=== PATIENT | male | born 1955 | race Hispanic/Latino ===

== ENCOUNTER 2019-09-10 18:05 | Inpatient (IN) | payer SELFPAY ==
[2019-09-10] MEDS ORDERED: Morphine 4 MG/ML VIAL ONE (18:35)
[2019-09-10] MEDS ORDERED: Dextrose 50% Abboject 50 ML SYRINGE SLOW IVP PRN (21:59)
[2019-09-10] MEDS ORDERED: HumaLOG 300 UNITS/3 ML VIAL SC PRN (21:59)
[2019-09-10] MEDS ORDERED: Dextrose 5% in Water 1,000 ML IV PRN (21:59)
[2019-09-10] MEDS ORDERED: Atorvastatin Calcium 40 MG TAB PO SCH (22:00)
[2019-09-10] MEDS ORDERED: Pantoprazole 40 MG VIAL IVP SCH (22:00)
[2019-09-10] MEDS ORDERED: Sodium Chloride 0.9% (PF) 10 ML VIAL FS PRN (22:03)
[2019-09-10] MEDS ORDERED: Metoprolol Tartrate 50 MG TAB PO SCH (22:15)
[2019-09-10 22:29] LABS: Troponin I 0.863 ng/mL (< 0.028)
[2019-09-10] MEDS: Morphine 2 MG/ML SYRINGE SLOW IVP PRN (22:51)
[2019-09-10 23:10] VITALS: BMI 33.5
[2019-09-10] MEDS ORDERED: Nitroglycerin 2% Ointment 1 INCH/1 GM Packet TOP SCH (23:59)
--- NOTE | 2019-09-11 00:41 | HP ---
CHIEF COMPLAINT: Chest pain. HISTORY OF PRESENT ILLNESS: The patient is a 63-year-old male with a history of coronary artery disease, who had three vessel bypass in 2004. The patient reports he follows with Dr. Knapp and gets sublingual nitroglycerin from him, but has not seen a it quality assurance analyst in 15 years. He also has hypertension, hyperlipidemia, and diabetes. The patient reports that for about the past 6 to 8 weeks, he has been having exertional chest pain. He used the sublingual nitroglycerin and it seemed to help him some initially. Therefore, he knew it was likely problematic. He was hopeful that it was more reflux related and he tried some sodium bicarb and sxee-[id number] medicines, but those did not seem to help him. He did not want to worry his family, so he did not say anything, but about 2-3 days ago, he started experiencing pain that was incessant, present /. He reported that it got to 8.5/10 today. It was central in his chest. He had no shortness of breath, nausea, vomiting or lightheadedness, but he did have pain today for the first time in both upper arms. He initially presented to the emergency department in [place], where he had nitroglycerin given x2 along with Lovenox and a GI cocktail. He apparently had some ST depression in V1, V4 and V5, although it does not appear to be significant by my evaluation of those. His troponin was 0.25. He was subsequently transferred to this facility. Currently, he reports 6/10 chest pain. He got some relief with the nitroglycerin, but it did not make it go away and the morphine has not helped him significantly either. REVIEW OF SYSTEMS: The patient reports that he has had muscle cramps about a week ago, thought he worked too hard and did not stay hydrated. He also has some musculoskeletal issues and reports he takes naproxen on a daily basis. PAST MEDICAL HISTORY: Hypertension, hyperlipidemia, prior [place] with coronary artery disease, diabetes mellitus, and diabetic neuropathy. PAST SURGICAL HISTORY: 1. CABG x3 vessels in 2004. 2. Bilateral carpal tunnel release. 3. Right shoulder surgery. FAMILY HISTORY: Father had heart disease. Mother had diabetes. SOCIAL HISTORY: The patient smokes a pack a day. He denies alcohol, tobacco, or drugs. He is . He is full code and his would be his surrogate decision maker should that become necessary. ALLERGIES: NONE. CURRENT MEDICATIONS: 1. Atorvastatin 20 mg at bedtime. 2. Fenofibrate 145 mg daily. 3. Gabapentin 300 mg b.i.d. 4. Lisinopril/hydrochlorothiazide 06/18.5 one p.o. daily. 5. Metformin 500 mg b.i.d. 6. Metoprolol 50 mg daily. 7. Nitroglycerin sublingual 0.4 mg p.r.n. PHYSICAL EXAMINATION: VITAL SIGNS: Most recent recorded vitals, BP 147/92, pulse 74, respirations 16, temperature 97.7, O2 saturations 99% on room air. GENERAL APPEARANCE: Age-appropriate male, who appears comfortable. He is awake and alert, pleasant, cooperative. HEENT: [place]. No OP lesions. NECK: Supple and symmetric. No lymphadenopathy, JVD, or bruits. HEART: Regular rate and rhythm without murmurs, gallops, or rubs. LUNGS: Clear to auscultation bilaterally with good chest wall expansion and air exchange. ABDOMEN: Soft, nontender, and nondistended. Positive bowel sounds. No masses and no organomegaly. EXTREMITIES: No cyanosis, clubbing, or edema. There is no musculoskeletal tenderness to palpation over the anterior chest. PSYCHIATRIC: Normal affect and behavior. NEUROLOGIC: Appears to move all extremities spontaneously. Has normal cognition and normal cranial nerve function. LABORATORY DATA: White count 14.4, hemoglobin 15.5, platelets 251. Chemistries are normal with the exception of the troponins as stated above. Chest x-ray is clear. EKG shows only some minimal nonspecific ST and T-wave changes, but certainly nothing diagnostic. It is otherwise normal sinus rhythm. IMPRESSION AND PLAN: 1. Chest pain with elevation in troponin consistent with a non-STEMI type 1 given his history. He has received nitroglycerin and Lovenox. We will put nitroglycerin paste and p.r.n. nitrates. Continue with his beta blockers. Consult Cardiology and keep him n.p.o. after midnight. Continue morphine for pain as needed. We will bump up his statin and check a lipid panel in the morning. 2. Diabetes mellitus. Holding his metformin in light of the potential for catheterization. We will continue Accu-Cheks sliding scale, diabetic diet and close monitoring. 3. Hypertension. Continue with his usual beta-michelle and PJ inhibitor. 4. Daily NSAID use with naproxen. Certainly with this bump in the troponins, this is most likely cardiac in nature. However, mitigating against that is the fact that the pain has been constant for several days, which is not typical of an anginal type pain and I am concerned that he certainly may have some component of GI related symptoms as well. Therefore, we will keep him on Protonix IV. Job ID: [id number]
[2019-09-11] MEDS: Nitroglycerin 0.4 MG TAB (25 Tab Bottle) SL PRN ×3 (00:42→22:37)
[2019-09-11 01:49] LABS: Troponin I 2.358 ng/mL (< 0.028)
[2019-09-11] MEDS: Morphine 2 MG/ML SYRINGE SLOW IVP PRN (03:13)
--- NOTE | 2019-09-11 03:44 | PDOC.EVN ---
Event Note - Event Note Event Note: Notified Mr. James had CP again. Talking with the patient, he had improvement of the pain around midnight and was able to sleep a few hours, but awoke with pain again. Has received meds again now and it is easing a bit, but not going away. Trops are positive now and upward trending. EKG is unchanged. Will transfer to the ICU for nitro gtt.
[2019-09-11] MEDS ORDERED: Nitroglycerin 50 MG/250 ML BOT 250 ML IVPB SCH (03:45)
[2019-09-11] MEDS ORDERED: Morphine 4 MG/ML VIAL SLOW IVP PRN (05:47)
[2019-09-11 06:05] LABS: Troponin I 5.378 ng/mL (< 0.028)
--- NOTE | 2019-09-11 06:10 | PDOC.EVN ---
Event Note - Event Note Event Note: Pain not relieved with nitro gtt at 30. Morphine 4 mg IV given. Discussed with Dr. Cummings. He will come see the patient. Recommended continued titration of the nitro. Last SBP down from 140's to 115. Will titrate slowly. Just notified that the latest troponin was up to 5.
--- NOTE | 2019-09-11 07:10 | CON ---
DATE OF CONSULTATION: HISTORY OF PRESENT ILLNESS: The patient is a 63-year-old gentleman, who presents with chest discomfort. The patient has a previous history of coronary artery disease. He underwent coronary artery bypass graft x3 in 2004. He had been doing well until a few months ago when he developed midsternal chest discomfort. He states this occurred with exertion and was relieved by rest. The patient presented to the emergency room yesterday when he developed recurrent chest discomfort that was not relieved by nitroglycerin. The patient was admitted to the hospital and has continued to report substernal chest discomfort. PAST MEDICAL HISTORY: 1. Hypertension. 2. Diabetes mellitus. 3. Dyslipidemia. PAST SURGICAL HISTORY: Coronary artery bypass graft surgery, shoulder surgery. SOCIAL HISTORY: Long history of continued tobacco abuse. MEDICATIONS: See nursing list. ALLERGIES: NONE. PHYSICAL EXAMINATION: GENERAL: Ill-appearing gentleman, in mild distress. VITAL SIGNS: Blood pressure 130/70. NECK: No jugular venous distention. LUNGS: Clear to auscultation. HEART: Regular rate and rhythm. Normal S1 and S2. ABDOMEN: Distended. EXTREMITIES: Showed no edema. LABORATORY DATA: His white blood cell count was 14.4, hemoglobin 15.3, hematocrit 46.9, and platelets are 251. His sodium is 142, potassium 3.7, chloride 104, bicarbonate 25, BUN 18, and creatinine 1.2. Troponin is 5. BNP 32. IMAGING DATA: EKG revealed normal sinus rhythm, nonspecific T-wave abnormality. IMPRESSION: 1. Non-Q-wave myocardial infarction. 2. History of coronary artery bypass surgery. 3. Hypertension. 4. Diabetes mellitus. 5. Dyslipidemia. 6. Tobacco abuse. PLAN: This gentleman presents with recurrent chest discomfort. His EKG is unremarkable. Cardiac enzymes reveal evidence of a non-Q-wave myocardial infarction. The patient's chest pain has been resistant to medical therapy. We will proceed with emergent cardiac catheterization. The risks of the procedure have been explained to the patient including [place], bleeding, stroke, cardiac arrhythmias, and cardiac . The patient understands these risks and wished to proceed. Critical care note time is 1 hour. Job ID: [id number] MTDD
[2019-09-11] MEDS ORDERED: Heparin (Artline) 1,000 ML ONE (07:35)
[2019-09-11] MEDS ORDERED: Midazolam HCl 2 mg/2 ml Vial ONE (08:12)
[2019-09-11] MEDS ORDERED: Pantoprazole 40 MG VIAL IVP SCH (09:00)
[2019-09-11] MEDS ORDERED: FLU VACC QS2019-20(6MOS UP)/PF 60 MCG/0.5 ML SYRINGE IM ONE (09:00)
[2019-09-11] MEDS ORDERED: Aspirin 81 mg Enteric Coated Tablet PO SCH (09:45)
[2019-09-11] MEDS ORDERED: Clopidogrel Bisulfate 300 MG TAB PO SCH (09:45)
[2019-09-11] MEDS ORDERED: Iopamidol 370 76% 100 ML VIAL ONE (09:51)
[2019-09-11] MEDS: Fenofibrate Nanocrystallized 145 MG TAB PO SCH (09:53)
[2019-09-11] MEDS: Gabapentin 300 MG CAP PO SCH ×2 (09:54→20:48)
[2019-09-11] MEDS: Metoprolol Tartrate 50 MG TAB PO SCH ×2 (09:54→20:48)
[2019-09-11] MEDS: Lisinopril/Hydrochlorothiazide 10 mg/12.5 mg Tablet PO SCH (10:00)
[2019-09-11 10:14] LABS: Troponin I 10.009 ng/mL (< 0.028)
[2019-09-11] MEDS ORDERED: HumaLOG 300 UNITS/3 ML VIAL SC PRN (13:40)
--- NOTE | 2019-09-11 13:43 | PDOC.HOSPP ---
- Subjective Encounter Date: 09/11/19 Encounter Time: 10:15 Subjective: Patient seen and examined for NSTEMI. CP improving. No new complaints. No overnight events - Objective Vital Signs & Weight: Vital Signs (12 hours) Temp Pulse Resp BP Pulse Ox 09/11/19 12:00 98.3 F 97 09/11/19 09:30 97 09/11/19 05:04 98 09/11/19 05:00 97.8 F 09/11/19 04:00 70 20 133/80 09/11/19 03:57 97.8 F 70 16 141/71 H 98 09/11/19 03:10 70 129/78 Weight Weight 195 lb 3.382 oz Most Recent Monitor Data Heart Rate from ECG 65 NIBP 83/60 NIBP BP-Mean 67 Respiration from ECG 24 SpO2 98 I&O: 09/10/19 09/11/19 09/12/19 06:59 06:59 06:59 Intake Total 340 Output Total 250 300 Balance -250 40 Additional Labs: Accuchecks 09/11/19 09/11/19 11:54 05:37 POC Glucose 111 H 134 H Laboratory Tests 09/11/19 09/11/19 05:16 09:39 Troponin I 10.009 H* Triglycerides 254 H Cholesterol 154 LDL Cholesterol, Calc 81 Radiology Reviewed by me: Yes (CXR - No infiltrate) EKG Reviewed by me: Yes (Tele SR) Hospitalist ROS - Review of Systems Respiratory: denies: cough, dry, shortness of breath, hemoptysis, SOB with excertion, pleuritic pain, sputum, wheezing, other Cardiovascular: denies: chest pain, palpitations, orthopnea, paroxysmal noc. dyspnea, edema, light headedness, other Gastrointestinal: denies: nausea, vomiting, abdominal pain, diarrhea, constipation, melena, hematochezia, other - Medication Medications: Active Medications Generic Name Dose Route Start Last Admin Trade Name Freq PRN Reason Stop Dose Admin Fenofibrate 145 mg 09/11/19 09:00 09/11/19 09:53 Tricor PO 145 mg DAILY CORTNEY Administration Gabapentin 300 mg 09/11/19 09:00 09/11/19 09:54 Neurontin PO 300 mg BID CORTNEY Administration Nitroglycerin/Dextrose 250 mls @ 0 mls/hr 09/11/19 03:45 09/11/19 04:42 Nitroglycerin 50 Mg/250 Ml Bot IVPB 250 mls INF CORTNEY Administration Protocol Titrate Metoprolol Tartrate 50 mg 09/11/19 09:00 09/11/19 09:54 Lopressor PO 50 mg BID CORTNEY Administration Morphine Sulfate 2 mg 09/10/19 21:59 09/11/19 03:13 Morphine SLOW IVP 2 mg Q4H PRN Administration Moderate to Severe Pain (6-10) Morphine Sulfate 4 mg 09/11/19 05:47 09/11/19 05:52 Morphine SLOW IVP 4 mg Q4H PRN Administration Severe Pain (7-10) Nitroglycerin 0.4 mg 09/10/19 21:49 09/11/19 02:54 Nitrostat SL 1 tab Q5M PRN Administration Chest Pain - Exam General Appearance: NAD Neck: no JVD Heart: RRR, no gallops, no rubs, normal peripheral pulses Respiratory: no wheezes, no rales, no ronchi Gastrointestinal: soft, non-tender, non-distended, normal bowel sounds Extremities: no cyanosis, no edema Neurological: no new deficit Psychiatric: normal affect, A&O x 3 Hosp A/P - Plan DVT proph w/SCDs NSTEMI DM2 HTN HLD CAD Tobacco dep Obesity 33.5 PLAN: Cont ASA/Metoprolol/Ranexa Plavix added Cont sliding scale Metformin on hold Cont NTG drip Cont Lisinopril/HCTZ AM labs
--- NOTE | 2019-09-11 16:54 | CON ---
DATE OF CONSULTATION: 09/11/2019 SERVICE: Pulmonary Medicine. REASON FOR CONSULTATION: ICU patient. HISTORY OF PRESENT ILLNESS: The patient is a 63-year-old male with past medical history significant for coronary artery disease. Typically, he will get some angina from time to time and takes some medication for it. For the past two weeks, almost any time he exerted himself, he gets chest discomfort, for which he take nitroglycerin and it go away. Ultimately, two days ago, he got to the point, where he had almost continuous chest discomfort and it is essentially was refractory to the nitroglycerin. As such, he presented to the Emergency Department. He was taken for cardiac catheterization. Medical optimization has been recommended. He denies any current fevers, chills, nausea, or vomiting. He has been coughing a little bit, but not bringing up any phlegm. He does not have any known COPD or asthma. He does have sleep apnea, for which he has a CPAP. It is quite old. He was formally diagnosed, but this was because his friend was a office technology instructor in some sort, and was able to get him a CPAP machine through back channels. PAST MEDICAL HISTORY: 1. Coronary artery disease. 2. Hypertension. 3. Dyslipidemia. 4. Type 2 diabetes mellitus. 5. Diabetic neuropathy. 6. Obstructive sleep apnea. 7. Morbid obesity. PAST SURGICAL HISTORY: 1. Coronary artery bypass graft x3 vessels in 2004. 2. Carpal tunnel surgery, bilateral. 3. Right shoulder surgery. FAMILY HISTORY: Noncontributory. SOCIAL HISTORY: Negative for alcohol or illicit drug use. He smokes a pack on a daily basis. He has a greater than 40 pack-year history of smoking. He has no exposure to chemicals, dust, asbestos, or tuberculosis. ALLERGIES: NO KNOWN DRUG ALLERGIES. MEDICATIONS: List of his inpatient medications was reviewed. No specific updates were made at this time. REVIEW OF SYSTEMS: General, head, ears, eyes, nose, throat, cardiovascular, respiratory, GI, , musculoskeletal, neurologic, and skin are negative except as mentioned is the HPI. PHYSICAL EXAMINATION: VITAL SIGNS: Afebrile, pulse 65, blood pressure 83/60, respirations 24, and saturation 98%, currently on 2 L nasal cannula. GENERAL: The patient is awake and alert, in no apparent distress. LUNGS: Decent air entry. Rhonchi are present, but clear with cough. Dependent crackles are minimal. HEART: Normal rate. Regular. ABDOMEN: Soft, nontender, and nondistended. Bowel sounds are positive. MUSCULOSKELETAL: No cyanosis or clubbing. There is trace pitting in bilateral lower extremities. : No [place]. LABORATORY DATA: Troponin has increased to 10.0. WBC 14.4, hemoglobin 15.3, and platelets 251,000. Basic metabolic profile and liver function studies are otherwise unremarkable. IMAGING: Chest x-ray demonstrates no acute cardiopulmonary abnormality. ASSESSMENT: 1. Non-ST elevation myocardial infarction. 2. Acute hypoxic respiratory failure. 3. Obstructive sleep apnea. DISCUSSION AND PLAN: The patient is stable for transition out of the ICU to the telemetry unit. Pulmonary will continue to follow, whenever if he remains in this location. I will check a CPAP out tomorrow and determine whether or not he is on appropriate settings. If not, we will get him to visit with me in the outpatient setting. 70 minutes have been devoted to this patient in various activities. I personally reviewed all imaging studies and laboratory data noted within this document. For fifty percent of this time, I was interacting with the patient at the bedside or coordinating care with the care team. For the remainder of the time I was immediately available to the patient in the hospital unit. Job ID: [id number] MTDD
[2019-09-11] MEDS: Atorvastatin Calcium 40 MG TAB PO SCH (20:48)
[2019-09-12 04:05] LABS: #Eosinphils 0.3 thou/uL (0.0-0.7); #Lymphocytes 1.4 thou/uL (1.20-3.40); #Monocytes 1.1 thou/uL (0.11-0.59); #Neutrophils 8.3 thou/uL (1.40-6.50); %Basophils 0.2 % (0.0-1.0); %Eosinophils 2.4 % (0.0-10.0); %Lymphocytes 12.9 % (21.0-51.0); %Monocytes 9.7 % (0.0-10.0); %Neutrophils 74.9 % (42.0-75.0); Hemoglobin 15.5 g/dL (14.0-18.0); Mean Corpuscular HGB CONC 33.5 g/dL (32.0-36.0); Mean Corpuscular Hemoglobin 30.7 pg (27.0-31.0); Mean Corpuscular Volume 91.9 fL (78.0-98.0); Mean Platelet Volume 9.8 fL (7.4-10.4); Platelet Count 162 thou/uL (130-400); RBC Distribution Width 12.3 % (11.5-14.5); Red Blood Cell (RBC) Count 5.03 mill/uL (4.70-6.10)
[2019-09-12 04:27] LABS: Anion Gap 14 mmol/L (10-20); BUN (Urea Nitrogen) 14 mg/dL (8.4-25.7); Calc. Creatinine Clearance 93 mL/min (70-130); Calcium 9.1 mg/dL (7.8-10.44); Carbon Dioxide 23 mmol/L (23-31); Chloride 105 mmol/L (98-107); Estimated GFR-MDRD 73; Glucose 110 mg/dL (80-115); Potassium 4.8 mmol/L (3.5-5.1); Sodium 137 mmol/L (136-145)
[2019-09-12 04:58] LABS: CKMB 39.2 ng/mL (0-6.6)
[2019-09-12] MEDS: Fenofibrate Nanocrystallized 145 MG TAB PO SCH (09:02)
[2019-09-12] MEDS: Metoprolol Tartrate 50 MG TAB PO SCH ×2 (09:03→20:52)
[2019-09-12] MEDS: Aspirin 81 mg Enteric Coated Tablet PO SCH (09:03)
[2019-09-12] MEDS: Gabapentin 300 MG CAP PO SCH ×2 (09:03→20:52)
[2019-09-12] MEDS: Clopidogrel Bisulfate 75 MG TAB PO SCH (09:03)
--- NOTE | 2019-09-12 10:20 | PRG ---
DATE OF SERVICE: 09/12/2019 SERVICE: Pulmonary Medicine. INTERVAL HISTORY: The patient is doing fine from respiratory standpoint. Breathing comfortably. No complaints of chest discomfort, nausea, vomiting, fevers or chills. Otherwise, there has been no interval change to his condition. He has a CPAP machine, but it is so old that it cannot be interrogated at bedside. There is no display. Either way, he would like to follow up with me in 1 to 2 months in the outpatient setting, so that he can update his equipment. We will make certain that we arrange for that. PHYSICAL EXAMINATION: VITAL SIGNS: Afebrile, pulse 78, blood pressure 136/63, respirations 20, and saturation 94%, currently on room air. GENERAL: The patient is awake and alert, in no apparent distress. LUNGS: Good air entry bilaterally. No crackles or wheezing appreciated. HEART: Normal rate and regular. ABDOMEN: Soft, nontender, and nondistended. Bowel sounds are positive. MUSCULOSKELETAL: No cyanosis or clubbing. There is trace pitting in the bilateral lower extremities. NEUROLOGIC: Grossly nonfocal. LABORATORY DATA: WBC 11.0, hemoglobin 15.5, and platelets 162,000. Basic metabolic profile is completely unremarkable. Troponin is gently up trending to 12.0. ASSESSMENT: 1. Xqi-FC-[id number] myocardial infarction. 2. Acute hypoxic respiratory failure. 3. Obstructive sleep apnea. DISCUSSION AND PLAN: We will continue to diurese him down to euvolemia. I will have him followup with me in the outpatient setting in 1 to 2 months so we can update his CPAP equipment. If it is okay with Cardiology, he can be transitioned to the floor. If he leaves the ICU, he will have no further requirements for inpatient Pulmonary or Critical Care opinion and I will sign off. Please call with additional questions or concerns through time. Job ID: [id number]
[2019-09-12] MEDS ORDERED: Mag-Al 1200 mg/1200 mg/30 ML UDCUP PO PRN (10:42)
[2019-09-12] MEDS ORDERED: Calcium Carbonate 500 MG ChewTAB PO PRN (10:42)
[2019-09-12] MEDS: Lisinopril/Hydrochlorothiazide 10 mg/12.5 mg Tablet PO SCH (10:51)
--- NOTE | 2019-09-12 16:19 | EKG ---
Test Reason : STAT Blood Pressure : / mmHG Vent. Rate : 071 BPM Atrial Rate : 071 BPM P-R Int : 148 ms QRS Dur : 080 ms QT Int : 422 ms P-R-T Axes : 054 041 048 degrees QTc Int : 458 ms Normal sinus rhythm Possible Left atrial enlargement Septal infarct , age undetermined Abnormal ECG When compared with ECG of 10-SEP-2019 22:57, (Unconfirmed) No significant change was found Confirmed by DR. Cara BRAMBILA (3) on 09/12/2019 4:18:48 PM Referred By: CLAUDE Confirmed By:DR. Cara BRAMBILA
--- NOTE | 2019-09-12 16:19 | EKG ---
Test Reason : STAT Blood Pressure : / mmHG Vent. Rate : 073 BPM Atrial Rate : 073 BPM P-R Int : 154 ms QRS Dur : 082 ms QT Int : 400 ms P-R-T Axes : 055 025 036 degrees QTc Int : 440 ms Normal sinus rhythm Possible Left atrial enlargement Nonspecific ST abnormality Abnormal ECG When compared with ECG of 25-JUN-2005 12:09, Criteria for Inferior infarct are no longer Present T wave inversion no longer evident in Inferior leads T wave inversion no longer evident in Lateral leads Confirmed by DR. Cara BRAMBILA (3) on 09/12/2019 4:18:36 PM Referred By: CLAUDE Confirmed By:DR. Cara BRAMBILA
--- NOTE | 2019-09-12 18:39 | PDOC.HOSPP ---
- Subjective Encounter Date: 09/12/19 Encounter Time: 10:30 Subjective: Patient seen and examined for NSTEMI. CP improving. Off NTG drip. No new complaints. No overnight events - Objective Vital Signs & Weight: Vital Signs (12 hours) Temp Pulse Pulse Pulse Resp BP BP 09/12/19 15:52 97.5 F L 77 27 H 09/12/19 13:20 97.8 F 77 18 09/12/19 12:00 98.5 F 09/12/19 10:51 69 147/83 H 09/12/19 09:57 71 80 136/63 09/12/19 09:00 98.4 F BP BP BP Pulse Ox Pulse Ox Pulse Ox 09/12/19 15:52 114/62 95 09/12/19 13:20 110/72 97 09/12/19 12:00 09/12/19 10:51 09/12/19 09:57 147/83 H 98 94 L 09/12/19 09:00 Weight Weight 195 lb 3.382 oz Most Recent Monitor Data Heart Rate from ECG 69 NIBP 97/63 NIBP BP-Mean 74 Respiration from ECG 16 SpO2 95 I&O: 09/11/19 09/12/19 09/13/19 06:59 06:59 06:59 Intake Total 607.8 540 Output Total 250 2200 540 Balance -250 -1592.2 0 Result Diagrams: 09/12/19 03:34 09/12/19 03:34 Additional Labs: Accuchecks 09/12/19 09/12/19 09/12/19 18:07 11:57 06:10 POC Glucose 162 H 92 118 H 09/11/19 09/11/19 20:54 17:59 POC Glucose 126 H 113 H EKG Reviewed by me: Yes (Tele SR) Hospitalist ROS - Review of Systems Respiratory: denies: cough, dry, shortness of breath, hemoptysis, SOB with excertion, pleuritic pain, sputum, wheezing, other Cardiovascular: denies: chest pain, palpitations, orthopnea, paroxysmal noc. dyspnea, edema, light headedness, other - Medication Medications: Active Medications Generic Name Dose Route Start Last Admin Trade Name Freq PRN Reason Stop Dose Admin Aspirin 81 mg 09/12/19 09:00 09/12/19 09:03 Ecotrin PO 81 mg DAILY CORTNEY Administration Atorvastatin Calcium 40 mg 09/11/19 21:00 09/11/19 20:48 Lipitor PO 40 mg HS CORTNEY Administration Clopidogrel Bisulfate 75 mg 09/12/19 09:00 09/12/19 09:03 Plavix PO 75 mg DAILY CORTNEY Administration Gabapentin 300 mg 09/11/19 09:00 09/12/19 09:03 Neurontin PO 300 mg BID CORTNEY Administration Lisinopril/HCTZ 1 tab 09/11/19 09:00 09/12/19 10:51 Prinizide 10-12.5 PO 1 tab DAILY CORTNEY Administration Metoprolol Tartrate 50 mg 09/11/19 09:00 09/12/19 09:03 Lopressor PO 50 mg BID [facility] Administration Morphine Sulfate 2 mg 09/10/19 21:59 09/11/19 03:13 Morphine SLOW IVP 2 mg Q4H PRN Administration Moderate to Severe Pain (6-10) Morphine Sulfate 4 mg 09/11/19 05:47 09/11/19 05:52 Morphine SLOW IVP 4 mg Q4H PRN Administration Severe Pain (7-10) Nitroglycerin 0.4 mg 09/10/19 21:49 09/11/19 22:37 Nitrostat SL 1 tab Q5M PRN Administration Chest Pain Pantoprazole Sodium 40 mg 09/12/19 09:00 09/12/19 09:03 Protonix PO 40 mg DAILY CORTNEY Administration Ranolazine 500 mg 09/11/19 21:00 09/12/19 09:03 Ranexa PO 500 mg BID CORTNEY Administration - Exam General Appearance: NAD Heart: RRR, no gallops Respiratory: no wheezes, no rales Gastrointestinal: non-tender, non-distended, normal bowel sounds Extremities: no edema Hosp A/P - Plan DVT proph w/SCDs NSTEMI DM2 HTN Dyslipidemia CAD s/p CABG Tobacco dep Obesity 33.5 GAYE on CPAP PLAN: Cont ASA/Plavix Cont Metoprolol/Ranexa/Lisinopril/HCTZ Cont sliding scale Resume Metformin at dc Off NTG drip Await Tele bed
[2019-09-12] MEDS: Atorvastatin Calcium 40 MG TAB PO SCH (20:52)
[2019-09-13] MEDS: Aspirin 81 mg Enteric Coated Tablet PO SCH (09:53)
[2019-09-13] MEDS: Clopidogrel Bisulfate 75 MG TAB PO SCH (09:53)
[2019-09-13] MEDS: Lisinopril/Hydrochlorothiazide 10 mg/12.5 mg Tablet PO SCH (09:54)
[2019-09-13] MEDS: Gabapentin 300 MG CAP PO SCH ×2 (09:54→21:31)
[2019-09-13] MEDS: Icosapent Ethyl 1 GM CAPSULE PO SCH ×2 (10:58→21:31)
[2019-09-13] MEDS ORDERED: Sodium Chloride 0.9% 250 ML IV SCH (17:30)
--- NOTE | 2019-09-13 21:28 | PDOC.HOSPP ---
- Subjective Encounter Date: 09/13/19 Encounter Time: 10:30 Subjective: Patient seen and examined for NSTEMI. Intermittent Chest pressure. No palpitations. No other complaints. No overnight events - Objective Vital Signs & Weight: Vital Signs (12 hours) Temp Pulse Pulse Pulse Resp BP BP 09/13/19 19:15 97.9 F 75 16 09/13/19 17:17 09/13/19 15:45 98.1 F 70 14 09/13/19 11:05 98.2 F 88 20 09/13/19 09:42 80 72 132/77 131/71 BP BP Pulse Ox 09/13/19 19:15 97/57 L 97 09/13/19 17:17 94/50 L 09/13/19 15:45 94/49 L 97 09/13/19 11:05 108/62 96 09/13/19 09:42 Weight Weight 191 lb Most Recent Monitor Data Heart Rate from ECG 69 NIBP 97/63 NIBP BP-Mean 74 Respiration from ECG 16 SpO2 95 I&O: 09/12/19 09/13/19 09/14/19 06:59 06:59 06:59 Intake Total 607.8 1620 360 Output Total 2200 540 Balance -1592.2 1080 360 Result Diagrams: 09/12/19 03:34 09/12/19 03:34 Additional Labs: Accuchecks 09/13/19 09/13/19 09/12/19 10:39 05:19 20:38 POC Glucose 137 H 112 H 125 H EKG Reviewed by me: Yes (Tele SR) Hospitalist ROS - Review of Systems Cardiovascular: reports: chest pain. denies: palpitations, orthopnea, paroxysmal noc. dyspnea, edema, light headedness, other Gastrointestinal: denies: nausea, vomiting, abdominal pain, diarrhea, constipation, melena, hematochezia, other - Medication Medications: Active Medications Generic Name Dose Route Start Last Admin Trade Name Freq PRN Reason Stop Dose Admin Al Hydroxide/Mg Hydroxide 30 ml 09/12/19 10:42 09/13/19 11:01 Maalox PO 30 ml Q6H PRN Administration Heartburn or Indigestion Aspirin 81 mg 09/12/19 09:00 09/13/19 09:53 Ecotrin PO 81 mg DAILY CORTNEY Administration Atorvastatin Calcium 40 mg 09/11/19 21:00 09/12/19 20:52 Lipitor PO 40 mg HS CORTNEY Administration Clopidogrel Bisulfate 75 mg 09/12/19 09:00 09/13/19 09:53 Plavix PO 75 mg DAILY CORTNEY Administration Gabapentin 300 mg 09/11/19 09:00 09/13/19 09:54 Neurontin PO 300 mg BID CORTNEY Administration Lisinopril/HCTZ 1 tab 09/11/19 09:00 09/13/19 09:54 Prinizide 10-12.5 PO 1 tab DAILY CORTNEY Administration Isosorbide Mononitrate 30 mg 09/13/19 09:00 09/13/19 09:54 Imdur PO 30 mg DAILY CORTNEY Administration Miscellaneous Medication 2 gm 09/13/19 09:00 09/13/19 10:58 Vascepa PO 2 gm BID CORTNEY Administration Morphine Sulfate 2 mg 09/10/19 21:59 09/11/19 03:13 Morphine SLOW IVP 2 mg Q4H PRN Administration Moderate to Severe Pain (6-10) Morphine Sulfate 4 mg 09/11/19 05:47 09/11/19 05:52 Morphine SLOW IVP 4 mg Q4H PRN Administration Severe Pain (7-10) Nitroglycerin 0.4 mg 09/10/19 21:49 09/11/19 22:37 Nitrostat SL 1 tab Q5M PRN Administration Chest Pain Pantoprazole Sodium 40 mg 09/12/19 09:00 09/13/19 09:54 Protonix PO 40 mg DAILY CORTNEY Administration - Exam General Appearance: NAD Heart: RRR, no gallops Respiratory: no wheezes, no rales, no ronchi Gastrointestinal: soft, non-tender, normal bowel sounds Extremities: no edema Hosp A/P - Plan DVT proph w/SCDs NSTEMI DM2 HTN Dyslipidemia CAD s/p CABG Tobacco dep Obesity 33.5 GAYE on CPAP PLAN: Cont ASA/Plavix/Metoprolol Cont Ranexa/Lisinopril/HCTZ Cont sliding scale and other meds as above Resume Metformin in AM Update @1700 Patient became hypotensive - SBP in 80s. Received 250 ml bolus. Toprol dose reduced per Cardiology
[2019-09-13] MEDS: Atorvastatin Calcium 40 MG TAB PO SCH (21:31)
[2019-09-14 05:06] LABS: #Basophils 0.1 thou/uL (0.0-0.2); #Eosinphils 0.6 thou/uL (0.0-0.7); #Lymphocytes 1.7 thou/uL (1.20-3.40); #Monocytes 1.1 thou/uL (0.11-0.59); #Neutrophils 7.2 thou/uL (1.40-6.50); %Basophils 0.6 % (0.0-1.0); %Eosinophils 5.7 % (0.0-10.0); %Lymphocytes 16.3 % (21.0-51.0); %Monocytes 10.5 % (0.0-10.0); Mean Corpuscular HGB CONC 33.6 g/dL (32.0-36.0); Mean Corpuscular Hemoglobin 30.8 pg (27.0-31.0); Mean Corpuscular Volume 91.6 fL (78.0-98.0); Mean Platelet Volume 10.1 fL (7.4-10.4); Platelet Count 150 thou/uL (130-400); RBC Distribution Width 12.4 % (11.5-14.5); Red Blood Cell (RBC) Count 4.86 mill/uL (4.70-6.10); White Blood Cell (WBC) Count 10.7 thou/uL (4.8-10.8)
[2019-09-14 05:33] LABS: Anion Gap 13 mmol/L (10-20); BUN (Urea Nitrogen) 21 mg/dL (8.4-25.7); Calc. Creatinine Clearance 73 mL/min (70-130); Calcium 9.1 mg/dL (7.8-10.44); Carbon Dioxide 24 mmol/L (23-31); Chloride 102 mmol/L (98-107); Estimated GFR-MDRD 56; Glucose 103 mg/dL (80-115); Potassium 4.2 mmol/L (3.5-5.1); Sodium 135 mmol/L (136-145)
[2019-09-14] MEDS ORDERED: metFORMIN 500 MG TAB PO SCH (08:00)
[2019-09-14] MEDS: Icosapent Ethyl 1 GM CAPSULE PO SCH ×2 (09:23→21:31)
[2019-09-14] MEDS: Clopidogrel Bisulfate 75 MG TAB PO SCH (09:24)
[2019-09-14] MEDS: Gabapentin 300 MG CAP PO SCH ×2 (09:24→21:31)
[2019-09-14] MEDS: Lisinopril/Hydrochlorothiazide 10 mg/12.5 mg Tablet PO SCH (09:24)
[2019-09-14] MEDS: Aspirin 81 mg Enteric Coated Tablet PO SCH (09:24)
--- NOTE | 2019-09-14 11:18 | PDOC.HOSPP ---
- Subjective Encounter Date: 09/14/19 Encounter Time: 11:16 Subjective: Patient seen and examined for NSTEMI. No CP. Ambulating in hallways. BP better today. No new complaints. No overnight events - Objective Vital Signs & Weight: Vital Signs (12 hours) Temp Pulse Resp BP Pulse Ox 09/14/19 09:15 97.9 F 79 18 107/63 93 L 09/14/19 04:00 98.5 F 68 20 104/54 L 94 L 09/14/19 00:00 75 108/55 L Weight Weight 191 lb Most Recent Monitor Data Heart Rate from ECG 69 NIBP 97/63 NIBP BP-Mean 74 Respiration from ECG 16 SpO2 95 I&O: 09/13/19 09/14/19 09/15/19 06:59 06:59 06:59 Intake Total 1620 360 Output Total 540 Balance 1080 360 Result Diagrams: 09/14/19 04:28 09/14/19 04:28 Additional Labs: Accuchecks 09/14/19 09/14/19 09/13/19 10:32 05:28 20:34 POC Glucose 115 H 121 H 228 H 09/13/19 17:35 POC Glucose 131 H EKG Reviewed by me: Yes (Tele SR) Hospitalist ROS - Review of Systems Respiratory: denies: cough, dry, shortness of breath, hemoptysis, SOB with excertion, pleuritic pain, sputum, wheezing, other Cardiovascular: denies: chest pain, palpitations, orthopnea, paroxysmal noc. dyspnea, edema, light headedness, other Gastrointestinal: denies: nausea, vomiting, abdominal pain, diarrhea, constipation, melena, hematochezia, other - Medication Medications: Active Medications Generic Name Dose Route Start Last Admin Trade Name Freq PRN Reason Stop Dose Admin Al Hydroxide/Mg Hydroxide 30 ml 09/12/19 10:42 09/13/19 11:01 Maalox PO 30 ml Q6H PRN Administration Heartburn or Indigestion Aspirin 81 mg 09/12/19 09:00 09/14/19 09:24 Ecotrin PO 81 mg DAILY CORTNEY Administration Atorvastatin Calcium 40 mg 09/11/19 21:00 09/13/19 21:31 Lipitor PO 40 mg HS CORTNEY Administration Clopidogrel Bisulfate 75 mg 09/12/19 09:00 09/14/19 09:24 Plavix PO 75 mg DAILY CORTNEY Administration Gabapentin 300 mg 09/11/19 09:00 09/14/19 09:24 Neurontin PO 300 mg BID CORTNEY Administration Lisinopril/HCTZ 1 tab 09/14/19 09:00 09/14/19 09:24 Prinizide 10-12.5 PO 1 tab DAILY CORTNEY Administration Isosorbide Mononitrate 30 mg 09/13/19 09:00 09/14/19 09:24 Imdur PO 30 mg DAILY CORTNEY Administration Miscellaneous Medication 2 gm 09/13/19 09:00 09/14/19 09:23 Vascepa PO 2 gm BID CORTNEY Administration Morphine Sulfate 2 mg 09/10/19 21:59 09/11/19 03:13 Morphine SLOW IVP 2 mg Q4H PRN Administration Moderate to Severe Pain (6-10) Morphine Sulfate 4 mg 09/11/19 05:47 09/11/19 05:52 Morphine SLOW IVP 4 mg Q4H PRN Administration Severe Pain (7-10) Nitroglycerin 0.4 mg 09/10/19 21:49 09/11/19 22:37 Nitrostat SL 1 tab Q5M PRN Administration Chest Pain Pantoprazole Sodium 40 mg 09/12/19 09:00 09/14/19 09:24 Protonix PO 40 mg DAILY CORTNEY Administration - Exam General Appearance: NAD Neck: supple, no JVD Heart: RRR, no gallops Respiratory: CTAB, no rales Gastrointestinal: soft, non-distended, normal bowel sounds Extremities: no edema Hosp A/P - Plan DVT proph w/SCDs NSTEMI CKD 2 DM2- on sliding scale HTN Dyslipidemia CAD s/p CABG Tobacco dep Obesity 33.5 GAYE on CPAP Hyponatremia PLAN: Echo - normal EF Cont ASA/Plavix on Metoprolol succ 50mg HS Cont Ranexa Restart Lisinopril/HCTZ in AM - hold today Cont other meds as above Resume Metformin at dc
[2019-09-14] MEDS: Atorvastatin Calcium 40 MG TAB PO SCH (21:30)
[2019-09-15] MEDS: Icosapent Ethyl 1 GM CAPSULE PO SCH (08:33)
[2019-09-15] MEDS: Aspirin 81 mg Enteric Coated Tablet PO SCH (08:33)
[2019-09-15] MEDS: Gabapentin 300 MG CAP PO SCH (08:33)
[2019-09-15] MEDS: Clopidogrel Bisulfate 75 MG TAB PO SCH (08:33)
[2019-09-15] MEDS: Lisinopril/Hydrochlorothiazide 10 mg/12.5 mg Tablet PO SCH (08:33)
[2019-09-15 11:56] VITALS: TEMP 98.3
[2019-09-15 14:52] VITALS: BP 150/80
--- NOTE | 2019-09-15 16:08 | DIS ---
DATE OF ADMISSION: 09/10/2019 DATE OF DISCHARGE: 09/15/2019 DISCHARGE DISPOSITION: Home. FOLLOWUP: 1. Follow up with primary care physician, Dr. Knapp next week as scheduled. 2. Follow up with Cardiology, Dr. Christiano Cummings and Pulmonary, Dr. Singh as scheduled. 3. Outpatient cardiac rehab. ALLERGIES: NO KNOWN DRUG ALLERGIES. DISCHARGE MEDICATIONS: 1. Aspirin 81 mg daily. 2. Plavix 75 mg daily. 3. Lipitor 40 mg at bedtime. 4. Imdur 30 mg daily. 5. Toprol-XL 50 mg at bedtime. 6. Protonix 40 mg daily. 7. Metformin 500 mg daily. 8. Lisinopril/HCTZ 10/12.5 daily. 9. Gabapentin 300 mg daily. INPATIENT CARRIER BLOWER: Cardiology, Dr. Christiano Cummings. BRIEF HOSPITAL COURSE: The patient is a 63-year-old male with coronary artery disease, status post bypass in 2004 with ongoing tobacco abuse, hypertension, and hyperlipidemia, presented to the hospital on 10 September 2019, with chest discomfort. His workup was consistent with qwi-HE-krmdhqoiw TX. His maximum troponin was 12.0. He underwent cardiac catheterization that showed 70% lesion in the left main, 100% lesion in the proximal LAD, 70% lesion in distal LAD as well as a repeat 60% stenosis in the distal LAD, 80% stenosis in the mid circumflex, 100% stenosis in the RCA. The aorta to first diagonal graft showed 100% stenosis. He was medically managed. He was monitored in the intensive care unit. Nitroglycerin drip was later discontinued. He has been started on Plavix. Metoprolol dose was increased. Later on, patient became hypotensive for which metoprolol dose was reduced to 50 mg at bedtime. His chest pain has significantly improved. His echocardiogram this admission showed ejection fraction of 50% to 55% with mild tricuspid regurgitation. He appears stable for discharge. FINAL DIAGNOSES: 1. Oyc-RV-ujuunimaf myocardial infarction. 2. Diabetes mellitus type 2. 3. Chronic kidney disease stage 2. 4. Hypertension. 5. Dyslipidemia. Fasting lipid profile, showed cholesterol of 154, triglyceride 254, HDL 22, LDL of 81. 6. Coronary artery disease, status post coronary artery bypass graft in 2004. 7. Tobacco dependence, the patient was counseled. 8. Obesity with a BMI of 33.5. 9. Obstructive sleep apnea, on CPAP. 10. Hyponatremia. PLAN: Plan was discussed with the patient in detail. He stated understanding. Job ID: [id number]
--- NOTE | 2019-09-16 05:50 | PQF ---
Kvng James MALIK MD [id number] CLINICAL DOCUMENTATION CLARIFICATION FORM: POST DISCHARGE Addendum to original discharge summary date: ____ Late entry note date: __ DATE: 09/16/19 ATTN: Ladarius Arellano Please exercise your independent, professional judgment in responding to the clarification form. Clinical indicators are provided on the bottom of this form for your review Please check appropriate box(s) to clarify if the following diagnosis has been ruled in or ruled out: Acute hypoxic respiratory Failure [ ] Ruled in diagnosis [ ] Continue to treat [ ] Resolved [ x ] Ruled out diagnosis [ ] Cannot rule out diagnosis [ ] Other diagnosis [ ] Unable to determine In addition, please specify: Present on Admission (POA): [ ] Yes [ ] No [ ] Unable to determine For continuity of documentation, please document condition throughout progress notes and discharge summary. Thank You. CLINICAL INDICATORS - SIGNS / SYMPTOMS / LABS Consult p1 09/11 two days ago, he got to the point, where he has almost continuos chest discomfort Consult p2 09/11 He has a greater than 40 pack-year history of smoking Consult p2 09/11 Viral sign BP83/60, Respiratory rate 24 and saturation 98% on 2L nasal cannula RISK FACTORS H&P p3 09/13 NSTEMI type 1 Operative report 09/10 s/p LHC Consult p1 09/11 Sleep apnea on CPAP Consult p2 09/11 Acute hypoxic respiratory Failure TREATMENTS Pulmo service consult 09/11 Dr Samantah Rodriges Respiratpry Panel- Cpap (This form is maintained as a part of the permanent medical record) 2014 [employer]. All Rights Reserved [email or web address] [not provided] MTDD
== END 2019-09-15 14:30 | disposition home or self-care (01) | DRG 281 ==
LOC: ERS 18:05 → 2NO 20:30 → CCU 09-11 04:38 → 2NO 09-12 13:47
PROVIDERS: ADMIT Family Medicine; ATTEND Family Medicine
PROC: 4A023N7 Measurement of Cardiac Sampling and Pressure, Left Heart, Percutaneous Approach (ICD-10-PCS; principal; 2019-09-11)
PROC: B2121ZZ Fluoroscopy of Single Coronary Artery Bypass Graft using Low Osmolar Contrast (ICD-10-PCS; 2019-09-11)
PROC: B2181ZZ Fluoroscopy of Left Internal Mammary Bypass Graft using Low Osmolar Contrast (ICD-10-PCS; 2019-09-11)
PROC: B2111ZZ Fluoroscopy of Multiple Coronary Arteries using Low Osmolar Contrast (ICD-10-PCS; 2019-09-11)
PROC: 5A09357 Assistance with Respiratory Ventilation, Less than 24 Consecutive Hours, Continuous Positive Airway Pressure (ICD-10-PCS; 2019-09-13)
PROC: 3E0234Z Introduction of Serum, Toxoid and Vaccine into Muscle, Percutaneous Approach (ICD-10-PCS; 2019-09-15)
PROC: 3E02340 Introduction of Influenza Vaccine into Muscle, Percutaneous Approach (ICD-10-PCS; 2019-09-15)
DX: I21.4 Non-ST elevation (NSTEMI) myocardial infarction (principal); E87.1 Hypo-osmolality and hyponatremia; E11.22 Type 2 diabetes mellitus with diabetic chronic kidney disease; N18.2 Chronic kidney disease, stage 2 (mild); I12.9 Hypertensive chronic kidney disease with stage 1 through stage 4 chronic kidney disease, or unspecified chronic kidney disease; E78.5 Hyperlipidemia, unspecified; I25.10 Atherosclerotic heart disease of native coronary artery without angina pectoris; G47.33 Obstructive sleep apnea (adult) (pediatric); E66.01 Morbid (severe) obesity due to excess calories; E11.40 Type 2 diabetes mellitus with diabetic neuropathy, unspecified; F17.200 Nicotine dependence, unspecified, uncomplicated; Z95.1 Presence of aortocoronary bypass graft; Z68.33 Body mass index [BMI] 33.0-33.9, adult; Z79.899 Other long term (current) drug therapy; Z79.84 Long term (current) use of oral hypoglycemic drugs; Z23 Encounter for immunization
CPT/HCPCS: 36415; 36416; 76942; 80048; 80061; 82553; 83735; 84484; 85025; 90471; 90686; 90732; 93005; 93010; 93306; 93455; 93798; 96374; 99152; 99153; C1769; C9113; G0008; G0009; J1644; J2250; J2270; Q9967

== ENCOUNTER 2019-09-21 18:56 | Observation (INO) | payer SELFPAY ==
[2019-09-21 19:55] LABS: #Basophils 0.1 thou/uL (0.0-0.2); #Eosinphils 0.4 thou/uL (0.0-0.7); #Lymphocytes 1.9 thou/uL (1.20-3.40); #Monocytes 1.2 thou/uL (0.11-0.59); #Neutrophils 7.8 thou/uL (1.40-6.50); %Basophils 0.6 % (0.0-1.0); %Eosinophils 3.5 % (0.0-10.0); %Lymphocytes 16.7 % (21.0-51.0); %Monocytes 10.3 % (0.0-10.0); %Neutrophils 68.9 % (42.0-75.0); Mean Corpuscular HGB CONC 34.7 g/dL (32.0-36.0); Mean Corpuscular Volume 92.1 fL (78.0-98.0); Platelet Count 185 thou/uL (130-400); RBC Distribution Width 12.1 % (11.5-14.5); Red Blood Cell (RBC) Count 4.39 mill/uL (4.70-6.10); White Blood Cell (WBC) Count 11.3 thou/uL (4.8-10.8)
[2019-09-21 20:17] LABS: ALT (SGPT) 32 U/L (8-55); AST (SGOT) 24 U/L (5-34); Albumin 3.9 g/dL (3.4-4.8); Alkaline Phosphatase 64 U/L (40-110); Anion Gap 13 mmol/L (10-20); BUN (Urea Nitrogen) 16 mg/dL (8.4-25.7); Bilirubin, Total 0.4 mg/dL (0.2-1.2); Calc. Creatinine Clearance 0 mL/min (70-130); Carbon Dioxide 23 mmol/L (23-31); Chloride 102 mmol/L (98-107); Estimated GFR-MDRD 54; Globulin 2.7 g/dL (2.4-3.5); Glucose 88 mg/dL (80-115); Potassium 4.5 mmol/L (3.5-5.1); Protein, Total 6.6 g/dL (5.8-8.1); Sodium 133 mmol/L (136-145)
[2019-09-21 20:39] LABS: CKMB 1.3 ng/mL (0-6.6)
[2019-09-21 21:41] VITALS: BMI 33.0
[2019-09-21] MEDS ORDERED: Ondansetron PF 4 MG/2 ML Vial IVP PRN (22:35)
[2019-09-21] MEDS ORDERED: Ondansetron ODT 4 MG TAB PO PRN (22:35)
[2019-09-21] MEDS ORDERED: Dextrose 5% in Water 1,000 ML IV PRN (22:37)
[2019-09-21] MEDS ORDERED: HumaLOG 300 UNITS/3 ML VIAL SC PRN ×2 (22:37)
[2019-09-21] MEDS ORDERED: Dextrose 50% Abboject 50 ML SYRINGE SLOW IVP PRN (22:37)
[2019-09-21 23:28] LABS: Troponin I 0.188 ng/mL (< 0.028)
--- NOTE | 2019-09-22 00:28 | HP ---
TIME OF ASSESSMENT: 2200 hours. CHIEF COMPLAINT: Low blood pressure. HISTORY OF PRESENT ILLNESS: Mr. James is a very pleasant 63-year-old gentleman, who was recently discharged from the hospital on September 15, 2019 after being admitted with chest pain and found to have an NSTEMI. The patient presents today with complaints of feeling "off" this morning. He states he woke up, went for a long walk, returned home and while making lunch, felt unusual. He checked his blood pressure, noted he was hypotensive with a systolic blood pressure in the 80s. He went to a local urgent care center where he had his blood pressure checked and states that it was in the low 100s. The patient left and again felt unwell therefore recheck his blood pressure and once again it was in the 80s systolic. This prompted him to go to the emergency department in [place]. He was noted to be hypotensive and was given IV fluids. He underwent an EKG, which showed normal sinus rhythm with a heart rate of 85. The EKG was apparently unchanged compared to previous EKG. He had laboratory studies that were done, which were notable for white count of 11.3. He had a slightly bumped creatinine of 1.34, which is similar to most recent admission. GFR is 54, also stable. Initial troponin was 0.251. The patient also had a chest x-ray done, which was unremarkable. He denies experiencing any chest pain or trouble with his breathing. He states the main issue has been the low blood pressure. He states after coming up to the floor and reviewing his medications with a nurse, he realized that he had been taking his medications incorrectly. When he was recently discharged, the patient was taken off lisinopril and his metoprolol was decreased to 50 mg every evening. The patient states he misunderstood and actually stopped his metoprolol and has been taking his lisinopril. At this present time, he is without any complaints and states he feels well in himself. Repeat blood pressure taken on his arrival is normal at 135/67. Of note, the patient did undergo a catheterization during his last admission on September 10, 2019, which showed 70% stenosis of LMCA, 100% stenosis of proximal LAD, 70% stenosis of distal LAD and another lesion involving the distal LAD with 60% stenosis. He had 80% stenosis of the mid circumflex artery, 100% stenosis of the proximal RCA and 100% stenosis of the previously done graft to the first diagonal. The patient was recommended medical management by Cardiology and diet/exercise. He was scheduled to follow up with Dr. Cummings. He also underwent an echo on September 14, 2019, which showed an EF of 50% to 55% and mild tricuspid regurgitation, otherwise unremarkable. REVIEW OF SYSTEMS: He denies having any recent fevers, chills, or sweats. Again, denies any chest pain or trouble with his breathing. He has been attempting to be more active and has been eating healthier. Denies any abdominal pain. No stool changes. Reports urinary frequency, which he attributes to drinking more fluids. Denies any dysuria or hematuria. All other review of systems are negative. PAST MEDICAL HISTORY: 1. Diabetes mellitus. 2. Coronary artery disease. 3. Hyperlipidemia. 4. VA in 2004. 5. NSTEMI in September 2019. PAST SURGICAL HISTORY: 1. CABG in 2004. 2. Right shoulder surgery. 3. Bilateral carpal tunnel surgery. 4. Recent catheterization with diffuse coronary artery disease. Medical management recommended. SOCIAL HISTORY: The patient lives with his family. He is fully independent. He previously smoked cigarettes, but quit in September 2019. Denies any alcohol consumption or illicit drug use. ALLERGIES: NO KNOWN DRUG ALLERGIES. CURRENT MEDICATIONS: 1. Atorvastatin. 2. Fenofibrate. 3. Gabapentin. 4. Metformin. 5. Metoprolol, has not been taking due to confusion regarding discharge medications that are in recent admission. 6. Nitroglycerin. PHYSICAL EXAMINATION: GENERAL: The patient appears well developed, well nourished, is in no acute distress. Vital SIGNS: Temperature 98.4, pulse 86, blood pressure 135/67, respirations 20 , O2 saturation 98% on room air. HEENT: Normocephalic and atraumatic. Pupils are equal, round, and reactive to light. Sclerae without icterus. Oropharynx is clear. NECK: Supple. No lymphadenopathy. LUNGS: Clear to auscultation bilaterally without wheezes, rales, or rhonchi. CARDIAC: Regular rate and rhythm. Chest wall without any tenderness or deformity. He has normal chest wall expansion. ABDOMEN: Soft, nontender, nondistended. Normoactive bowel sounds present. No guarding or rigidity. EXTREMITIES: No lower leg swelling or edema. NEUROLOGIC: Alert and oriented x3. SKIN: Warm and dry. LABORATORY DATA: White blood count 11.3, hemoglobin 14, hematocrit 40.4, neutrophils 68.9%, platelets 185. Sodium 133, potassium 4.5, BUN 16, creatinine 1.34, GFR 54, glucose 88, calcium 9, total bilirubin 0.4, AST 24, ALT 32, alkaline phosphatase 64. Troponin 0.239. Total protein 6.6, albumin 3.9. IMAGING DATA: Chest x-ray unremarkable. IMPRESSION AND PLAN: Mr. James is a very pleasant 63-year-old gentleman, who presented due to concerns over low blood pressure. He is being admitted for management of the followin. Acute coronary syndrome rule out. The patient with an indeterminate troponin. 2. He was initially seen at [facility]. There, he was given aspirin 324 mg. We will continue to trend troponins. The patient with abnormal catheterization done recently, but recommended medical management given extent of coronary artery disease. He is known to Dr. Cummings whom he is scheduled to see in the next few days. We will continue cardiac monitoring. 3. Hypotension. The patient's symptoms were associated with a low blood pressure and lowest blood pressure at [facility] was 84/48. He did receive 500 mL of normal saline. The patient is feeling better at this present time and his blood pressure has improved to 135 systolic. It appears, there has been confusion regarding his discharge medications. He should have been on metoprolol 50 mg, which had been reduced from 100 mg 1 tablet at bedtime. He was taken off lisinopril. However , he has continued lisinopril and has discontinued his metoprolol. We will go ahead and resume his metoprolol and stop the lisinopril. We will monitor his blood pressure. The patient is tolerating fluid by mouth and renal function stable. Therefore, we will give maintenance fluids only. 4. Diabetes. We will resume home medications once verified. Monitor blood glucose and initiate sliding scale. 5. Hyperlipidemia. Resume home medications once verified. 6. Gastrointestinal prophylaxis. The patient is on Nexium at home and he will resume. 7. Deep venous thrombosis prophylaxis. The patient is ambulatory. Mechanical sequential compression devices. 8. Code status, full. Surrogate decision maker is his , Jillian Dahl. The patient's case discussed with attending who agrees upon care as described above. Job ID: [id number] MTDD
[2019-09-22 05:05] LABS: #Basophils 0.1 thou/uL (0.0-0.2); #Eosinphils 0.5 thou/uL (0.0-0.7); #Lymphocytes 2.3 thou/uL (1.20-3.40); #Monocytes 1.1 thou/uL (0.11-0.59); #Neutrophils 5.1 thou/uL (1.40-6.50); %Basophils 0.8 % (0.0-1.0); %Eosinophils 5.4 % (0.0-10.0); %Lymphocytes 25.2 % (21.0-51.0); %Neutrophils 56.7 % (42.0-75.0); Hemoglobin 14.1 g/dL (14.0-18.0); Mean Corpuscular HGB CONC 33.5 g/dL (32.0-36.0); Mean Corpuscular Hemoglobin 30.7 pg (27.0-31.0); Mean Corpuscular Volume 91.5 fL (78.0-98.0); Mean Platelet Volume 9.1 fL (7.4-10.4); Platelet Count 189 thou/uL (130-400); RBC Distribution Width 12.1 % (11.5-14.5); Red Blood Cell (RBC) Count 4.58 mill/uL (4.70-6.10); White Blood Cell (WBC) Count 8.9 thou/uL (4.8-10.8)
[2019-09-22 05:31] LABS: Anion Gap 12 mmol/L (10-20); BUN (Urea Nitrogen) 15 mg/dL (8.4-25.7); Calc. Creatinine Clearance 86 mL/min (70-130); Carbon Dioxide 22 mmol/L (23-31); Chloride 105 mmol/L (98-107); Estimated GFR-MDRD 69; Glucose 93 mg/dL (80-115); Potassium 4.2 mmol/L (3.5-5.1); Sodium 135 mmol/L (136-145)
[2019-09-22] MEDS ORDERED: Clopidogrel Bisulfate 75 MG TAB PO SCH (09:00)
[2019-09-22] MEDS ORDERED: Isosorbide Mononitrate (ER) 30 MG TAB PO SCH (09:00)
[2019-09-22] MEDS ORDERED: Aspirin 81 mg Enteric Coated Tablet PO SCH (09:00)
[2019-09-22] MEDS ORDERED: Fenofibrate Nanocrystallized 145 MG TAB PO SCH (09:00)
[2019-09-22] MEDS ORDERED: Famotidine/PF 20 mg/2ml Vial SLOW IVP SCH (09:00)
[2019-09-22] MEDS ORDERED: Gabapentin 300 MG CAP PO SCH (09:00)
[2019-09-22 11:47] VITALS: BP 95/62; TEMP 97.3
--- NOTE | 2019-09-22 14:42 | DIS ---
DATE OF ADMISSION: 09/21/2019 DATE OF DISCHARGE: 09/22/2019 PRIMARY CARE PROVIDER: Raghavendra Knapp DO DISPOSITION: Discharged home. FINAL DIAGNOSES: 1. Hypotensive episode, resolved. 2. Coronary artery disease. 3. Hypertension. 4. Diabetes mellitus type 2. DISCHARGE MEDICATIONS: 1. Metoprolol 50 mg a day. 2. Metformin 500 mg a day. 3. Isosorbide 30 mg a day. 4. Gabapentin 300 mg a day. 5. Fenofibrate 145 mg a day. 6. Nexium 20 mg a day. 7. Plavix 75 mg a day. 8. Lipitor 40 mg a day. 9. Aspirin 81 mg a day. ALLERGIES: NO KNOWN DRUG ALLERGIES. DIET: Diabetic. PENDING AT TIME OF DISCHARGE: Nothing. CODE STATUS: Full. [facility]. The patient recently discharged from the hospital on September 15 with a [id number]-iolojreyy myocardial infarction, presented today not feeling well. His blood pressures were dropping into the 80s. He realized that he had been taking the wrong medicines instead of taking Toprol, he had been taking Lipitor, which had been decreased. He was given some fluids. His laboratory; comp metabolic profile showed increased creatinine of 1.34, which the repeat today is 1.09. His troponins were 0.239 and 0.188. It is pertinent to mention that he had a wax-AX-dloexvthr NH on the 4th of this month. At that time, his troponins were 0.345, 0.863, 2.345, 5.378, 10.009, and 12.080. He was discharged home with medical management; however, he has been taking oral medicines. The troponins currently just represent a continuing decline of those previous. He has had no shortness of breath, no pressure chest pain. His CBC was unremarkable, except for a minor elevation in white count 11.3 to follow up with 8.9. The patient's cardiorespiratory exam is unremarkable. His four blood pressures prior to being discharged were 111/59, 102/57, 107/62, and 95/62. In discussions with him, he states that he frequently has systolic blood pressures from 90 to 100 and does not feel bad. I discussed with him the fact that if he starts having dizziness on arising, that is more important and he needs to be seen. His pulse is always in the 80s. He has agreed to see Dr. Knapp in 3 days in followup. He has appointment in early October with Dr. Cummings. He is to keep that. He is comfortable with the discharge. Job ID: [id number]
[2019-09-22] MEDS ORDERED: Atorvastatin Calcium 40 MG TAB PO SCH (21:00)
--- NOTE | 2019-09-24 12:00 | EKG ---
Test Reason : Blood Pressure : / mmHG Vent. Rate : 085 BPM Atrial Rate : 085 BPM P-R Int : 144 ms QRS Dur : 080 ms QT Int : 372 ms P-R-T Axes : 034 042 052 degrees QTc Int : 442 ms Normal sinus rhythm Nonspecific ST abnormality Abnormal ECG Confirmed by RYLEY BELL, KOBI ([id number]), video tape editor CHRISSIE DAVIS ([id number]) on 09/24/2019 11:59:54 AM Referred By: Confirmed By:KOBI HEDRICK MD
== END 2019-09-22 15:03 | disposition home or self-care (01) ==
LOC: ERS 18:56 → 2SW 21:28
PROVIDERS: ADMIT Internal Medicine; ATTEND Internal Medicine
DX: I95.9 Hypotension, unspecified (principal); I10 Essential (primary) hypertension; I25.10 Atherosclerotic heart disease of native coronary artery without angina pectoris; E11.9 Type 2 diabetes mellitus without complications; E78.5 Hyperlipidemia, unspecified; I21.4 Non-ST elevation (NSTEMI) myocardial infarction; Z79.84 Long term (current) use of oral hypoglycemic drugs; Z79.899 Other long term (current) drug therapy; Z87.891 Personal history of nicotine dependence; Z95.1 Presence of aortocoronary bypass graft
CPT/HCPCS: 36415; 36416; 80048; 82553; 85025; 93005; 96374; G0378; S0028

== ENCOUNTER 2022-04-07 17:30 | Outpatient (CLI) | payer OTHER | END 2022-04-07 17:31 | disposition home or self-care (01) | LOC: SLEEPLAB 17:30 | PROVIDERS: ATTEND Nurse Practitioner Family | DX: G47.33 Obstructive sleep apnea (adult) (pediatric) (principal); R53.83 Other fatigue; E11.9 Type 2 diabetes mellitus without complications; I10 Essential (primary) hypertension; R06.83 Snoring; G47.00 Insomnia, unspecified | CPT/HCPCS: 95800 ==

== ENCOUNTER 2024-04-29 03:55 | Observation (INO) | payer MEDICARE ==
[2024-04-29 07:13] VITALS: BMI 32.7
[2024-04-29] MEDS ORDERED: Nitroglycerin 0.4 MG TAB (25 Tab Bottle) SL PRN (07:31)
[2024-04-29] MEDS ORDERED: Dextrose 5% in Water 1,000 ML IV PRN (07:39)
[2024-04-29] MEDS ORDERED: Dextrose 50% Abboject 50 ML SYRINGE SLOW IVP PRN (07:39)
[2024-04-29] MEDS ORDERED: Glucagon 1 MG/ML KIT IM PRN (07:39)
[2024-04-29] MEDS ORDERED: Non-Formulary Item 1 EACH (Icosapent Ethyl 1 GM Capsule) PO SCH (09:00)
[2024-04-29] MEDS ORDERED: Non-Formulary Item 1 EACH (Esomeprazole Magnesium [Nexium 24hr] 20 MG Capsule.Dr) PO SCH (09:00)
[2024-04-29] MEDS: Icosapent Ethyl 1 GM CAPSULE PO SCH ×3 (09:16→16:22)
[2024-04-29] MEDS: Gabapentin 300 MG CAP PO SCH (09:16)
[2024-04-29] MEDS: Isosorbide Mononitrate 60 MG ER.TAB PO SCH (09:16)
[2024-04-29] MEDS: Ezetimibe 10 MG TAB PO SCH (09:16)
[2024-04-29] MEDS: Clopidogrel Bisulfate 75 MG TAB PO SCH (09:16)
[2024-04-29] MEDS: Aspirin 81 mg Enteric Coated Tablet PO SCH (09:16)
[2024-04-29] MEDS: Pantoprazole DR 40 MG TAB PO SCH (09:17)
[2024-04-29 11:51] LABS: Troponin I 0.023 ng/mL (< 0.028)
[2024-04-29] MEDS ORDERED: ADENOSINE 60 MG/20 ML SDV ONE (14:09)
[2024-04-29] MEDS: Insulin Lispro 100 UNIT/ML 10 ML VIAL SC PRN (16:23)
[2024-04-29] MEDS: Atorvastatin Calcium 40 MG TAB PO SCH (20:49)
[2024-04-30 12:00] VITALS: BP 128/72; TEMP 97.5
== END 2024-04-30 13:45 | disposition home or self-care (01) ==
LOC: 2SW 05:36
PROVIDERS: ADMIT Student in an Organized Health Care Education/Training Program; ATTEND Internal Medicine
DX: R07.89 Other chest pain (principal); I21.4 Non-ST elevation (NSTEMI) myocardial infarction; E78.5 Hyperlipidemia, unspecified; I10 Essential (primary) hypertension; I25.10 Atherosclerotic heart disease of native coronary artery without angina pectoris; E11.9 Type 2 diabetes mellitus without complications; I25.2 Old myocardial infarction; Z87.891 Personal history of nicotine dependence; Z79.82 Long term (current) use of aspirin; Z79.84 Long term (current) use of oral hypoglycemic drugs
CPT/HCPCS: 78452; 82962 ×2; 84484; 85379; 93017; 94760; A9502; J0153; J1815; 36415; 36416; G0378